=== PATIENT | female | born 1980 | race African-American/Black ===

== ENCOUNTER 2022-10-04 13:18 | Inpatient (IN) | payer MEDICARE, MEDICAID ==
[~2022-10-04] VITALS: Ht 167.6 cm; Wt 93.4 kg
--- NOTE | 2022-10-04 13:25 | NUR ---
kelsey, from snf, sob, 88% on 5lpm via NC, NRB 15L 92%
[2022-10-04] MEDS ORDERED: methylPREDNISolone SOD SUCC 125 MG/2ML VIAL IV ONE (13:30)
[2022-10-04] MEDS ORDERED: Magnesium 1GM/D5W 100ML PREMIX 200 ML IV ONE (13:30)
[2022-10-04] MEDS ORDERED: IPRATROPIUM NEB FS 0.5 MG/2.5 ML AMPUL.NEB NEB ONE (13:30)
[2022-10-04] MEDS ORDERED: ALBUTEROL FS 2.5 MG/3 ML VIAL.NEB CONTNEB ONE (13:30)
[2022-10-04] MEDS ORDERED: ALBUTEROL FS 2.5 MG/3 ML VIAL.NEB ONE (13:33)
[2022-10-04] MEDS ORDERED: IPRATROPIUM NEB FS 0.5 MG/2.5 ML AMPUL.NEB ONE (13:33)
--- NOTE | 2022-10-04 13:54 | NUR ---
COVID SWAB TAKEN
--- NOTE | 2022-10-04 13:58 | NUR ---
MOVE SHEET SUBMITTED.
--- NOTE | 2022-10-04 14:00 | NUR ---
RT AT BEDSIDE FOR TX
[2022-10-04] MEDS ORDERED: HYDR-4303 PO (14:11)
[2022-10-04] MEDS ORDERED: PANT20TA2 PO (14:11)
[2022-10-04] MEDS ORDERED: ALBU0.633 IH (14:11)
[2022-10-04] MEDS ORDERED: ACET-868 PO (14:11)
[2022-10-04] MEDS ORDERED: TYL2T PO (14:11)
[2022-10-04] MEDS ORDERED: FLUT1DIS3 IH (14:11)
--- NOTE | 2022-10-04 14:30 | NUR ---
midline placed at right upper arm,
--- NOTE | 2022-10-04 15:26 | NUR ---
blood sample obtained
[2022-10-04 15:43] LABS: BASOPHILS % (AUTO) 0.3 % (0.0-2.0); EOSINOPHILS % (AUTO) 6.9 % (0.0-6.0); HEMATOCRIT 40 % (33-45); HEMOGLOBIN 12.8 g/dL (11.5-14.8); LYMPHOCYTES # (AUTO) 2.6 K/uL (0.8-4.8); LYMPHOCYTES % (AUTO) 29.5 % (20.0-44.0); MEAN CORPUSCULAR HGB CONC 32 g/dl (31.0-36.0); MEAN CORPUSCULAR VOLUME 89 fL (82-100); MONOCYTES # (AUTO) 0.7 K/uL (0.1-1.30); MONOCYTES % (AUTO) 7.9 % (2.0-12.0); NEUTROPHILS % (AUTO) 55.4 % (43.0-81.0); PLATELET COUNT (AUTO) 290 K/uL (150-450); RED BLOOD CELL COUNT(AUTO) 4.45 MIL/uL (4.0-5.2); WHITE BLOOD COUNT (AUTO) 8.9 K/uL (4.3-11.0)
[2022-10-04] MEDS ORDERED: methylPREDNISolone SOD SUCC 125 MG/2ML VIAL ONE (15:45)
[2022-10-04] MEDS ORDERED: Magnesium 1GM/D5W 100ML PREMIX 100 ML IV ONE ×2 (15:45→16:30)
[2022-10-04 15:57] LABS: CALCIUM, SERUM 8.4 mg/dL (8.5-10.1); CARBON DIOXIDE 26 mmol/L (21-32); CHLORIDE 107 mmol/L (98-107); GLUCOSE 102 mg/dL (74-106); POTASSIUM 3.6 mmol/L (3.5-5.1); SODIUM SERUM 139 mmol/L (136-145); UREA NITROGEN, BLOOD 20 mg/dL (7-18)
[2022-10-04] MEDS ORDERED: ACETAMINOPHEN 325 MG TABLET PO PRN ×3 (16:00)
[2022-10-04] MEDS ORDERED: Z GUARD REMEDY 4 OZ OINT TP PRN (16:00)
[2022-10-04] MEDS ORDERED: MAGNESIUM HYDROXIDE 30 ML UDC PO PRN (16:00)
[2022-10-04] MEDS ORDERED: ZOLPIDEM TARTRATE 5 MG TABLET PO PRN (16:00)
[2022-10-04] MEDS ORDERED: ONDANSETRON HCL/PF 4 MG/2 ML VIAL IVP PRN (16:00)
[2022-10-04] MEDS ORDERED: MAG HYDROX/AL HYDROX/SIMETH 30 ML UDC PO PRN (16:00)
[2022-10-04 16:19] LABS: ALANINE AMINOTRANSFERASE 24 U/L (12-78); ALBUMIN 3.1 g/dL (3.4-5.0); ALKALINE PHOSPHATASE 69 U/L (46-116); ASPARTATE AMINOTRANSFERASE 18 U/L (15-37); BILIRUBIN,DIRECT 0.2 mg/dL (0.0-0.2); BILIRUBIN,TOTAL 0.3 mg/dL (0.2-1.0)
[2022-10-04 16:37] LABS: ABG BASE EXCESS -2.9 mmol/L; ABG PCO2 34.8 mmHg (35.0-45.0); ABG PH 7.402 (7.350-7.450); ABG PO2 151.4 mmHg (75.0-100.0); COHb 1.4 % (0.5-1.5); MetHb 0.3 % (0.0-1.5); O2Hb 97.6 % (94.0-97.0); SITE, ABG Left Brachial; VENT MODE, BG 8LPM SIMPLE MASK
--- NOTE | 2022-10-04 19:58 | NUR ---
report given to alonso on 3rd floor
[2022-10-04 20:15] VITALS: BP 94/50
--- NOTE | 2022-10-04 20:15 | NUR ---
REGIONAL CRAREMOTE SENSING SPECIALIST NOTE PT BROUGHT UP VIA [facility] TO UNIT AT THIS TIME. PT ADMITTED TO TELE FROM ER UNDER DR SIMMONS FOR ADMITTING DX ACUTE ASTHMA EXACERBATION. A/O X3 AND ABLE TO MAKE NEEDS KNOWN. ON O2 @ 4 LPM VIA NC, SATURATING 97%. NO SOB OR S/S OF RESPIRATORY DISTRESS. BREATHING EVEN AND UNLABORED. ON EXTERNAL GENERAL MAINTENANCE MECHANIC READING SR 84 BPM. IV ACCESS CURTIS MIDLINE, INTACT AND PATENT. PT STATED SHE IS BEDBOUND, NOTED WITH MILD WEAKNESS IN BILATERAL LOWER EXTREMITIES. PT STATED SHE WANTED A PURWICK, PLACED ONE, NOTED THAT PT IS MENSTRUATING. PT NOTED WITH MULTIPLE SCRATCHES AND OLD LFA SKIN GRAFT, WOUND CONSULT ORDERED. ORIENTED TO UNIT, STAFF, AND ROOM. PT BELONGINGS ACCOUNTED FOR AND BELONGINGS LIST SIGNED. SAFETY PRECAUTIONS IN PLACE. BED IN LOWEST LOCKED POSITION, HOB ELEVATED, SIDE RAILS UP X3, AND CALL LIGHT AND TABLE WITHIN REACH. SNACKS AND WARM BLANKET PROVIDED. ALL NEEDS MET AT THIS TIME.
[2022-10-04] MEDS: LEVOFLOXACIN 500 MG /D5W 100ML 500 MG in PREMIX 1 EA IV SCH (21:06)
[2022-10-04] MEDS: methylPREDNISolone SOD SUCC 40 MG/ML VIAL IV SCH (21:06)
[2022-10-04] MEDS: ENOXAPARIN SODIUM 40 MG/0.4 ML DISP.SYRIN SQ SCH (21:06)
[2022-10-04 21:12] VITALS: BP 96/56
[2022-10-04] MEDS: BUDESONIDE RESPULE INH 0.5 MG/2 ML AMPUL.NEB IH SCH (23:30)
[2022-10-04] MEDS: ALBUTEROL FS 2.5 MG/3 ML VIAL.NEB CONTNEB SCH (23:30)
[2022-10-04] MEDS: IPRATROPIUM NEB FS 0.5 MG/2.5 ML AMPUL.NEB NEB SCH (23:30)
--- NOTE | 2022-10-04 23:37 | NUR ---
RT NOTE TX NOT GIVEN @ 1930, WAS NOT AWARE OF PATIENT IN UNIT. WILL GIVE NEXT SCHEDULED TX.
[2022-10-05] VITALS: BP 94/50
--- NOTE | 2022-10-05 01:10 | NUR ---
RN NOTE PT ARRIVED WITH POLST STATING DNR/DNI. CONFIRMED WITH PT. TROY MAK INFORMED WITH NEW ORDER FOR CODE STATUS DNR/DNI. NEW ORDER NOTED AND CARRIED OUT.
[2022-10-05] MEDS: IPRATROPIUM NEB FS 0.5 MG/2.5 ML AMPUL.NEB NEB SCH ×4 (01:57→19:30)
[2022-10-05] MEDS: ALBUTEROL FS 2.5 MG/3 ML VIAL.NEB CONTNEB SCH ×4 (01:57→19:30)
[2022-10-05] MEDS: ALBUTEROL FS 2.5 MG/3 ML VIAL.NEB NEB SCH ×4 (02:09→19:30)
[2022-10-05] MEDS: methylPREDNISolone SOD SUCC 40 MG/ML VIAL IV SCH ×3 (04:29→21:18)
[2022-10-05 06:05] LABS: CALCIUM, SERUM 8.5 mg/dL (8.5-10.1); PHOSPHORUS 3.1 mg/dL (2.5-4.9); POTASSIUM 4.1 mmol/L (3.5-5.1)
[2022-10-05 06:08] LABS: HEMATOCRIT 38 % (33-45); HEMOGLOBIN 12.5 g/dL (11.5-14.8); LYMPHOCYTES # (AUTO) 0.6 K/uL (0.8-4.8); LYMPHOCYTES % (AUTO) 6.2 % (20.0-44.0); MEAN CORPUSCULAR HGB CONC 33 g/dl (31.0-36.0); MEAN CORPUSCULAR VOLUME 88 fL (82-100); MONOCYTES # (AUTO) 0.1 K/uL (0.1-1.30); MONOCYTES % (AUTO) 0.7 % (2.0-12.0); NEUTROPHILS # (AUTO) 9.3 K/uL (1.8-8.9); NEUTROPHILS % (AUTO) 93.1 % (43.0-81.0); PLATELET COUNT (AUTO) 303 K/uL (150-450); RED BLOOD CELL COUNT(AUTO) 4.35 MIL/uL (4.0-5.2)
--- NOTE | 2022-10-05 06:33 | NUR ---
PULMONARY FUNCTION TECHNOLOGIST CLOSING NOTE PT AWAKE IN BED. A/O X3 AND ABLE TO MAKE NEEDS KNOWN. ON O2 @ 4 LPM VIA NC, SATURATING 97%. NO SOB OR S/S OF RESPIRATORY DISTRESS. BREATHING EVEN AND UNLABORED. ON EXTERNAL JUKEBOX ROUTEMAN READING SR 82 BPM. IV ACCESS CURTIS MIDLINE, INTACT AND PATENT. ALL DUE MEDS GIVEN ORDERED. KEPT CLEAN AND DRY. SAFETY PRECAUTIONS IN PLACE AT ALL TIMES. BED IN LOWEST LOCKED POSITION, HOB ELEVATED, SIDE RAILS UP X3, AND CALL LIGHT AND TABLE WITHIN REACH. ALL NEEDS MET AT THIS TIME AND WILL ENDORSE TO ONCOMING NURSE FOR PAT.
[2022-10-05] MEDS: PANTOPRAZOLE 40 MG TABLET.DR PO SCH (07:48)
--- NOTE | 2022-10-05 07:59 | NUR ---
RN OPENING NOTE- PT AWAKE IN BED. INTERACTIVE, A/O X3 AND ABLE TO MAKE NEEDS KNOWN. REQUESTING FOOD,ON O2 @ 4 LPM VIA NC, SATURATING 97%. NO SOB OR S/S OF RESPIRATORY DISTRESS. ON EXTERNAL EXPERIMENTAL DISPLAY BUILDER READING SR 79 BPM. IV ACCESS CURTIS MIDLINE. SAFETY PRECAUTIONS IN PLACE AT ALL TIMES. BED IN LOWEST LOCKED POSITION, HOB ELEVATED, SIDE RAILS UP X3, AND CALL LIGHT AND TABLE WITHIN REACH. MONITOR / ASSIST
[2022-10-05] MEDS: BUDESONIDE RESPULE INH 0.5 MG/2 ML AMPUL.NEB IH SCH ×2 (08:04→19:30)
[2022-10-05 08:11] VITALS: BP 100/61
--- NOTE | 2022-10-05 10:14 | NUR ---
WOUND CARE CONSULT: PT SLEEPING SOUNDLY AT THIS TIME. ADMISSION PHOTOS INDICATE SOME SCARRING AND AREAS OF SKIN DISCOLORATION. PER RN, NO WOUND CONSULT NEEDED AT THIS TIME. WILL SEE PRN.
[2022-10-05 11:55] VITALS: BP 80/50
[2022-10-05] MEDS: LEVOFLOXACIN 500 MG /D5W 100ML 500 MG in PREMIX 1 EA IV SCH (16:12)
[2022-10-05 16:20] VITALS: BP 91/54
[2022-10-05] MEDS: ENOXAPARIN SODIUM 40 MG/0.4 ML DISP.SYRIN SQ SCH (16:24)
--- NOTE | 2022-10-05 18:38 | NUR ---
RN CLOSING NOTE- UNCHANGED, PT AWAKE IN BED. INTERACTIVE, A/O X3 AND ABLE TO MAKE NEEDS KNOWN. REQUESTING FOOD, ON O2 @ 4 LPM VIA NC, SATURATING 97%. NO SOB OR S/S OF RESPIRATORY DISTRESS. ON EXTERNAL CHIEF LIBRARIAN WORK WITH BLIND READING SR 79 BPM. IV ACCESS CURTIS MIDLINE. SAFETY PRECAUTIONS IN PLACE AT ALL TIMES. BED IN LOWEST LOCKED POSITION, HOB ELEVATED, SIDE RAILS UP X3, AND CALL LIGHT AND TABLE WITHIN REACH. MONITOR / ASSIST
--- NOTE | 2022-10-05 19:40 | NUR ---
CASE FINISHING MACHINE ADJUSTER OPENING NOTES RECEIVED PATIENT IN BED AWAKE, ALERT AND ORIENTED. A/O X 3-4. NO S/S OF PAIN NOTED AT THIS TIME. ON 4L OXYGEN VIA NC, BREATHING EVEN AND UNLABORED, NO DISTRESS OR SOB NOTED. PT W/ EXTERNAL DIGITAL ENGINEER W/ CURRENT READING OF SR @ 88, NO CARDIAC DISTRESS NOTED. IV ACCESS CURTIS MIDLINE, SL. SAFETY MEASURES IN PLACE WITH BED ON LOWEST AND LOCK POSITION. BED ALARM ON. SIDE RAILS UP X 2. TRAY AND CALL LGIHT WITHIN EASY REACH. WILL CONTINUE WITH THE PLAN OF CARE.
[2022-10-05 20:00] VITALS: BP 80/60
[2022-10-05] MEDS: HYDROCODONE/APAP 5/325MG TABLET PO PRN (20:44)
--- NOTE | 2022-10-05 20:45 | NUR ---
RN NOTES- MARYCO PATIENT C/O OF RIGHT HAND PAIN WITH THE SCALE OF 8/10. NORCO 325MG TAB GIVEN PRN. WILL ASSESS THE PAIN AFTER AN HOUR AND MONITOR PATIENT.
--- NOTE | 2022-10-05 22:41 | NUR ---
RN NOTES- ATIVAN GIVEN PATIENT IS HAVING SEIZURE-LIKE SYMPTOMS LIKKE SHAKING HANDS. ATIVAN 1MG/0.5ML IV GIVEN PRN. ASPIRATION PRECAUTION DONE. WILL CONTINUE TO MONITOR PATIENT. Addendum: 10/06/22 at 0646 by JENNIE NAVARRO RN WRONG PATIENT NAME
[2022-10-06] MEDS: IPRATROPIUM NEB FS 0.5 MG/2.5 ML AMPUL.NEB NEB SCH ×4 (01:30→19:58)
[2022-10-06] MEDS: ALBUTEROL FS 2.5 MG/3 ML VIAL.NEB NEB SCH ×2 (01:30→07:35)
[2022-10-06] MEDS: ALBUTEROL FS 2.5 MG/3 ML VIAL.NEB CONTNEB SCH ×4 (01:30→19:58)
--- NOTE | 2022-10-06 03:44 | NUR ---
JOANA NOTES- ATIVAN GIVEN PATIENT IS HAVING SEIZURE-LIKE SYMPTOMS WHICH IS SHAKING HANDS. ATIVAN 1MG/0.5ML IV GIVEN PRN. ASPIRATION PRECAUTION DONE. WILL CONTINUE TO MONITOR PATIENT. Addendum: 10/06/22 at 0646 by JENNIE NAVARRO RN WRONG PATIENT Addendum: 10/06/22 at 0646 by JENNIE NAVARRO RN WRONG PATIENT NAME
[2022-10-06] MEDS: methylPREDNISolone SOD SUCC 40 MG/ML VIAL IV SCH ×3 (04:57→20:54)
[2022-10-06 07:00] VITALS: BP 93/60
--- NOTE | 2022-10-06 07:20 | NUR ---
DEPUTY SHERIFF BUILDING GUARD NOTES PATIENT IN BED ALERT ORIENTED X 4, NO ACUTE DISTRESS NOTED, BREATHING UNLABORED. NO SOB NOTED. IV ACCESS PATENT AND INTACT. SAFETY MEASURES IN PLACE, CALL LIGHT WITHIN REACH. WILL CONTINUE TO MONITOR ACCORDINGLY
--- NOTE | 2022-10-06 07:38 | NUR ---
MS RN CLOSING NOTES PATIENT IN BED AWAKE, ALERT AND ORIENTED. A/O X 3-4. NO S/S OF PAIN NOTED AT THIS TIME. ON 4L OXYGEN VIA NC, BREATHING EVEN AND UNLABORED, NO DISTRESS OR SOB NOTED. ON PUREWICK, DRAINED 400 CC JONELLE COLORED URINE. IV ACCESS CURTIS MIDLINE, SL. SAFETY MEASURES IN PLACE WITH BED ON LOWEST AND LOCK POSITION. BED ALARM ON. SIDE RAILS UP X 2. TRAY AND CALL LIGHT WITHIN EASY REACH. WILL ENDORSE TO THE NEXT SHIFT..
[2022-10-06] MEDS: PANTOPRAZOLE 40 MG TABLET.DR PO SCH (07:50)
[2022-10-06] MEDS: BUDESONIDE RESPULE INH 0.5 MG/2 ML AMPUL.NEB IH SCH (07:58)
[2022-10-06] MEDS ORDERED: IPRATROPIUM NEB FS 0.5 MG/2.5 ML AMPUL.NEB NEB SCH (09:00)
[2022-10-06] MEDS: ENOXAPARIN SODIUM 40 MG/0.4 ML DISP.SYRIN SQ SCH (16:00)
[2022-10-06] MEDS: LEVOFLOXACIN 500 MG /D5W 100ML 500 MG in PREMIX 1 EA IV SCH (16:22)
[2022-10-06 16:27] VITALS: BP 82/50
--- NOTE | 2022-10-06 16:29 | NUR ---
MS RN- Patient refused Lovenox. Patient aware of the risks and benefits of not taking medication. Janell Haynes made aware.
--- NOTE | 2022-10-06 18:51 | NUR ---
WIRE TECHNICIAN CLOSING NOTES PATIENT IN BED ALERT ORIENTED X 4, NO ACUTE DISTRESS NOTED, BREATHING UNLABORED. NO SOB NOTED. IV ACCESS PATENT AND INTACT. NEEDS ATTENDED AND ANTICIPATED. SAFETY MEASURES IN PLACE, CALL LIGHT WITHIN REACH. WILL ENDORSE TO NIGHT NURSE FOR CONTINUITY OF CARE
--- NOTE | 2022-10-06 19:45 | NUR ---
MS RN NOTES RECEIVED ON BED, ON HIGH FOWLERS POSITION,BREATHING EASY NO SOB.O2 USE ON AND OFF,PUREWICK NOT IN PLACE,COMMENTED SHE HAD PERIOD.VERY NEEDY,HOMELESS.WILL CONTINUE TO MONITOR.
[2022-10-06 20:00] VITALS: BP 99/59
[2022-10-06] MEDS: HYDROCODONE/APAP 5/325MG TABLET PO PRN (21:08)
--- NOTE | 2022-10-06 21:08 | NUR ---
MS RN NOTES HAVING ON RIGHT HAND 5/10 ON PAIN SCALE,NORCO 5/325MG,1TAB PO GIVEN ORDERED AND PER PATIENT REQUEST.
[2022-10-07] MEDS: IPRATROPIUM NEB FS 0.5 MG/2.5 ML AMPUL.NEB NEB SCH ×4 (00:32→20:11)
[2022-10-07] MEDS: ALBUTEROL FS 2.5 MG/3 ML VIAL.NEB CONTNEB SCH ×4 (00:32→20:11)
[2022-10-07] MEDS ORDERED: VANCOMYCIN 1.25 GM in IV D5W 250 ML IV SCH (02:00)
[2022-10-07] MEDS: methylPREDNISolone SOD SUCC 40 MG/ML VIAL IV SCH ×3 (04:55→20:24)
--- NOTE | 2022-10-07 05:30 | NUR ---
MS RN NOTES OFFERED MORNING CARE BUT REFUSED.
--- NOTE | 2022-10-07 06:57 | NUR ---
MS RN NOTES FAIRLY RESTED AT NIGHT,PAIN IMPROVED WITH NORCO.POSSIBLE DISCHARGE,AWAITING PLACEMENT.IN NO ACUTE DISTRESS
[2022-10-07 08:00] VITALS: BP 96/69
--- NOTE | 2022-10-07 08:16 | NUR ---
RN OPENING NOTE RECEIVED PATIENT IN BED AO x 4, ABLE TO RESPONDS PHYSICAL STIMULI. RESPIRATORY EVEN AND UNLABORED IN OXYGEN AT 4 Ls VIA NC. IN NO ACUTE RESPIRATORY DISTRESS OBSERVED. SKIN IS WARM TO TOUCH, KEEP CLEAN/DRY. KEPT ELEVATED HOB FOR ASPIRATION PRECAUTION/ENSURE AIRWAY, ALSO LOWEST BED POSITIONED. BED ALARM IS ON AT ALL THE TIME FOR SAFETY. CALL LIGHT WITHIN REACH, WILL CONTINUE TO MONITOR.
[2022-10-07] MEDS: PANTOPRAZOLE 40 MG TABLET.DR PO SCH (08:29)
--- NOTE | 2022-10-07 13:30 | NUR ---
PATIENT NOTICED GRAM POSITIVE FROM BLOOD CX, MADE AWARE.
[2022-10-07] MEDS ORDERED: VANCOMYCIN 1.25 GM in IV D5W 250 ML IV ONE (15:00)
[2022-10-07 15:54] LABS: BILIRUBIN,URINE NEGATIVE (NEGATIVE); COLOR,URINE DARK YELLOW (YELLOW); LEUKOCYTE ESTERASE ,URINE NEGATIVE (NEGATIVE); NITRITE, URINE POSITIVE (NEGATIVE); PROTEIN,URINE 2+ mg/dl (NEGATIVE); UGLUCOSE NEGATIVE (NEGATIVE)
[2022-10-07 16:00] VITALS: BP 89/52
[2022-10-07] MEDS: ENOXAPARIN SODIUM 40 MG/0.4 ML DISP.SYRIN SQ SCH (16:12)
[2022-10-07] MEDS: LEVOFLOXACIN (250MG) 250 MG TABLET PO SCH (16:24)
[2022-10-07] MEDS ORDERED: HYDROCODONE/APAP 10/325MG TABLET PO PRN (17:00)
[2022-10-07] MEDS: HYDROCODONE/APAP 5/325MG TABLET PO PRN (17:05)
[2022-10-07 17:10] LABS: BACTERIA,URINE 1+ /HPF (None Seen); SQUAMOUS EPITHELIAL CELL,UR Few /HPF (None Seen); URINE AMORPHOUS URATE Moderate /HPF (None Seen); WBC,URINE 0-2 /HPF (0-3)
--- NOTE | 2022-10-07 18:00 | NUR ---
RN CLOSING NOTE PATIENT RESTING IN BED. IN NO ACUTE DISTRESS OBSERVED. RESPIRATORY EVEN AND UNLABORED ON OXYGEN AT 4Ls VIA NC, NO SOB OR DESATURATION NOTED. SKIN IS WARM TO TOUCH KEEP CLEAN/DRY. KEPT ELEVATED HOB FOR ENSURE AIRWAY/ASPIRATION PRECAUTION, AND LOWEST BED POSITION. BED ALARM IS ON AT ALL THE TIME FOR SAFETY. CALL LIGHT WITHIN REACH, WILL ENDORSE OAKES MACHINE OPERATOR.
--- NOTE | 2022-10-07 18:35 | NUR ---
PATIENT NOTED POSITIVE BACTERIA FROM UA RESULT, AND INFORMED MD.
[2022-10-07 20:30] VITALS: BP 93/55
[2022-10-07 20:32] VITALS: BP 93/93
[2022-10-08] MEDS: IPRATROPIUM NEB FS 0.5 MG/2.5 ML AMPUL.NEB NEB SCH ×4 (01:30→20:25)
[2022-10-08] MEDS: ALBUTEROL FS 2.5 MG/3 ML VIAL.NEB CONTNEB SCH ×4 (01:30→20:25)
[2022-10-08] MEDS: VANCOMYCIN 1.25 GM in IV D5W 250 ML IV SCH ×2 (02:36→15:58)
[2022-10-08] MEDS: methylPREDNISolone SOD SUCC 40 MG/ML VIAL IV SCH (05:23)
[2022-10-08 05:41] LABS: HEMATOCRIT 38 % (33-45); HEMOGLOBIN 12.2 g/dL (11.5-14.8); LYMPHOCYTES # (AUTO) 0.4 K/uL (0.8-4.8); LYMPHOCYTES % (AUTO) 6.1 % (20.0-44.0); MEAN CORPUSCULAR HGB CONC 32 g/dl (31.0-36.0); MEAN CORPUSCULAR VOLUME 90 fL (82-100); MONOCYTES # (AUTO) 0.2 K/uL (0.1-1.30); MONOCYTES % (AUTO) 3.3 % (2.0-12.0); NEUTROPHILS # (AUTO) 6.4 K/uL (1.8-8.9); NEUTROPHILS % (AUTO) 90.6 % (43.0-81.0); PLATELET COUNT (AUTO) 227 K/uL (150-450); RED BLOOD CELL COUNT(AUTO) 4.21 MIL/uL (4.0-5.2); WHITE BLOOD COUNT (AUTO) 7.1 K/uL (4.3-11.0)
[2022-10-08 05:51] LABS: CALCIUM, SERUM 7.4 mg/dL (8.5-10.1); POTASSIUM 3.8 mmol/L (3.5-5.1)
--- NOTE | 2022-10-08 07:20 | NUR ---
END OF SHIFT REPORT Patient in bed, Alert Oriented x4. Oxygen sat high 90's in 3L NC. CURTIS Midline intact, on IV Abx. Afebrile. Up to BSC, had large BM. Observed no SOB with exertion. Urine collected send to lab for urine cx test. Urine color red mixed with blood as patient on her menstrual cycle period. Patient reports her bed is wet and dirty with urine, IT INTERN and RN removed and changed linens, provided patient with clean blankets. Patient yelled out to nurse on why all 4 blankets were taken away from her. Educated on good hygiene, preventing infection as all blankets needs to be changed d/t soiling, provided more blankets to patient. Patient continuous with outburst calling names and profanity. Declined education. Good appetite, request more food. Fall precaution maintained. Endorsed to am Nurse.
--- NOTE | 2022-10-08 07:27 | NUR ---
MS RN OPENING NOTES RECEIVED PATIENT AWAKE IN BED IN NO ACUTE SIGNS OF DISTRESS. A/O X4. ABLE TO MAKE NEEDS KNOWN, NO C/O PAIN OR DISCOMFORTS AT THIS TIME. ON 02 VIA N/C @ 3LPM, TOLERATING WELL, BREATHING EVEN AND UNLABORED. PT WITH CURTIS MIDLINE G#18 SALINE LOCKED, PATENT AND INTACT. SAFETY MEASURES IN PLACE: BED IN LOWEST LOCKED POSITION, BED ALARM ON, SIDE-RAILS UP X2 AND CALL LIGHT WITHIN REACH. WILL CONTINUE TO MONITOR PT ACCORDINGLY.
[2022-10-08] MEDS: PANTOPRAZOLE 40 MG TABLET.DR PO SCH (07:32)
--- NOTE | 2022-10-08 08:30 | NUR ---
PT RECEIVED RESTING COMFORTABLY IN BED. NO S/S OR C/O PAIN OR DISTRESS NOTED. SIDE RAILS UP X2, CALL LIGHT LEFT WITHIN REACH. WILL CONTINUE PLAN OF CARE.
[2022-10-08 09:00] VITALS: BP 88/51
[2022-10-08] MEDS: LEVOFLOXACIN (250MG) 250 MG TABLET PO SCH (15:59)
[2022-10-08] MEDS: ENOXAPARIN SODIUM 40 MG/0.4 ML DISP.SYRIN SQ SCH (16:00)
[2022-10-08] MEDS: HYDROCODONE/APAP 5/325MG TABLET PO PRN (16:04)
--- NOTE | 2022-10-08 18:05 | NUR ---
CHANGE OF SHIFT REPORT PT RESTING COMFORTABLY IN BED. NO S/S OR C/O PAIN OR DISTRESS NOTED. SIDE RAILS UP X2, CALL LIGHT LEFT WITHIN REACH. PT KEPT CLEAN, DRY, AND COMFORTABLE. NO SIGNIFICANT CHANGES FROM PREVIOUS SHIFT. WILL GIVE REPORT TO TRAVIS BERNARD.
--- NOTE | 2022-10-08 19:35 | NUR ---
ms adalgisa initial notes received report from am nurse and seen pt in bed on sitting position with side rails x2 up, awake and alert watching TV. No signs of any distress noted. She's on O2 at 2 liters via nasal canula. Skin warm and dry to touch. Pt states she still having menstrual period but denies any pain. She request to have a sandwich , crackers, pudding and juice later. Kept her warm and comfortable at all times. will continue monitoring. call light at reach.
--- NOTE | 2022-10-08 20:00 | NUR ---
MS FOOD AIDE NOTES PT CALLED AND COMPLAINING OF PAIN ON HER RIGHT HAND. I SPOKE TO THE PATIENT THAT I NEED TO RE-CHECK HER BLOOD PRESSURE BEFORE I WILL GIVE HER PAIN MEDS. SHE TOLD ME AND ASK ME WHY. I EXPLAIN TO HER THAT HER BLOOD PRESSURE THAT HAS TAKEN BY FABRIC PATTERN GRADER IS LOW 77/34. THEN PATIENT STATES THAT SHE'S ALWAYS HAVE LOW BP AND SHE INSIST THAT I CAN'T USE HER RIGHT ARM. I STILL EXPLAINED TO HER THAT I STILL NEEDS TO RE- CHECK EVEN USING HER LOWER LEGS. PT AGREED AND LOOKING AT ME. BLOOD PRESSURE CAME UP 105/76 AND HEART RATE 77.
[2022-10-08 20:19] VITALS: BP 105/58
--- NOTE | 2022-10-08 20:29 | NUR ---
MS ROASTMASTER NOTES NORCO TABLET GIVEN FOR HER RIGHT HAND PAIN 02/12 . SNACKS ALSO SERVED. WILL CONTINUE MONITORING.
[2022-10-09] MEDS: IPRATROPIUM NEB FS 0.5 MG/2.5 ML AMPUL.NEB NEB SCH ×4 (01:18→19:30)
[2022-10-09] MEDS: ALBUTEROL FS 2.5 MG/3 ML VIAL.NEB CONTNEB SCH ×4 (01:18→19:30)
--- NOTE | 2022-10-09 02:53 | NUR ---
MS MEL NOTES NOTIFY [facility] AND SPOKE TO [facility] REGARDING VANCO TROUGH LEVEL 23H, HOLD VANCO FOR NOW.
[2022-10-09] MEDS: VANCOMYCIN 1.25 GM in IV D5W 250 ML IV SCH (02:56)
[2022-10-09 06:20] LABS: CALCIUM, SERUM 6.9 mg/dL (8.5-10.1); CREATININE 1.1 mg/dL (0.6-1.3); POTASSIUM 3.6 mmol/L (3.5-5.1)
--- NOTE | 2022-10-09 06:49 | NUR ---
MS SERVICE DELIVERY MANAGER CLOSING NOTES PT SEEN IN BED WATCHING TV AT THIS TIME. STABLE THROUGHOUT THE NIGHT AFTER PAIN MEDICATION GIVEN LAST NIGHT. KEPT HER WARM AND COMFORTABLE AT ALL TIMES. BED IN LOW AND LOCK IN POSITION WITH SIDE RAILS X2 UP ,PLACE CALL LIGHT AT REACH. WILL ENDORSE TO AM NURSE FOR CONTINUITY OF CARE.
[2022-10-09] MEDS: PANTOPRAZOLE 40 MG TABLET.DR PO SCH (07:31)
--- NOTE | 2022-10-09 07:32 | NUR ---
MS RN OPENING NOTES: RECEIVED PATIENT IN BED, ASLEEP EASILY AWAKEN WITH STIMULI. PT ALERT AND ORIENTED X 3 AND ABLE TO MAKE NEEDS KNOWN. NO SOB OR CARDIAC DISTRESS NOTED. IV ACCESS ON CURTIS MIDLINE PATENT,INTACT AND FLUSHING WELL, SL. SAFETY MEASURES MAINTAINED: BED LOCKED AND IN LOWEST POSITION, SIDE RAILS UP X 2, CALL LIGHT IN EASY REACH AND WILL MONITOR PT ACCORDINGLY.
[2022-10-09 08:00] VITALS: BP 94/46
[2022-10-09] MEDS: predniSONE 20 MG TABLET PO SCH (08:30)
--- NOTE | 2022-10-09 13:39 | NUR ---
RN NOTES: RECEIVED A CALL FROM JAYY (LAB) BLOOD CULTURE RESULT IS AEROBIC GRAM POSITIVE COCCI. RELAYED TO DR NICHOLE PAULA, PT ON VANCO IC- DR PAULA STATED "NO NEW ORTHER". ORDERS NOTED AND CARRIED OUT.
[2022-10-09] MEDS: VANCOMYCIN 1 GM in IV D5W 250ml IV SCH (14:09)
[2022-10-09] MEDS: ENOXAPARIN SODIUM 40 MG/0.4 ML DISP.SYRIN SQ SCH (15:16)
[2022-10-09] MEDS: LEVOFLOXACIN (250MG) 250 MG TABLET PO SCH (15:16)
[2022-10-09 16:00] VITALS: BP 90/44
--- NOTE | 2022-10-09 18:53 | NUR ---
MS RN CLOSING NOTES: PT IN BED, AWAKE. ALERT AND ORIENTED X 3 AND ABLE TO MAKE NEEDS KNOWN. NO SOB OR CARDIAC DISTRESS NOTED. NO COMPLAIN OF ANY PAIN IN AM SHIFT. ABLE TO AMBULATE WITH ASSISTANCE. ON ROOM AIR AND TOLERATING WELL. IV ACCES ON CURTIS MIDLINE,PATENT,INTACT AND SALINE LOCKED. SAFETY MEASURES MAINTAINED:BED LOCKED AN IN LOWEST POSITION, SIDE RAILS UP X 2 CALL LIGHT IN EASY REACH FOR HELP. ENDORSED TO NUT SORTER OPERATOR RN FOR CONTINUITY OF CARE.
[2022-10-09 20:00] VITALS: BP 114/66
--- NOTE | 2022-10-09 20:00 | NUR ---
MS MEL INITIAL NOTES RECEIVED REPORT FROM AM NURSE AND SEEN PT IN BED SITTING WATCHING TV AT THIS TIME, NOT IN ANY ACUTE DISTRESS NOTED. SHE'S COMPLAINING OF PAIN ON HER RIGHT HAND 6/10 , SHE ALSO REQUEST FOR SNACKS WELL . KEPT HER WARM AND COMFORTABLE AT ALL TIMES. PLACE CALL LIGHT AT REACH. WILL CONTINUE MONITORING.
[2022-10-09] MEDS: HYDROCODONE/APAP 5/325MG TABLET PO PRN (20:34)
--- NOTE | 2022-10-09 20:35 | NUR ---
MS LABEL SEWER NOTES NORCO TABLET 5 MG PO GIVEN FOR PAIN PT REQUESTED. SNACKS ALSO SERVED.
--- NOTE | 2022-10-09 21:45 | NUR ---
MS JOB TRAINING SPECIALIST NOTES' RE-ASSESS PT FOR HER PAIN AND SHE STATES FEEL BETTER. KEPT HER WARM AND COMFORTABLE AT ALL TIMES. PLACE CALL LIGHT AT REACH.
[2022-10-10] MEDS: IPRATROPIUM NEB FS 0.5 MG/2.5 ML AMPUL.NEB NEB SCH ×3 (01:30→13:30)
[2022-10-10] MEDS: ALBUTEROL FS 2.5 MG/3 ML VIAL.NEB CONTNEB SCH ×3 (01:30→13:30)
[2022-10-10] MEDS: VANCOMYCIN 1 GM in IV D5W 250ml IV SCH (03:25)
[2022-10-10 06:32] LABS: BASOPHILS % (AUTO) 0.6 % (0.0-2.0); EOSINOPHILS % (AUTO) 2.1 % (0.0-6.0); HEMATOCRIT 35 % (33-45); HEMOGLOBIN 11.3 g/dL (11.5-14.8); LYMPHOCYTES # (AUTO) 2.6 K/uL (0.8-4.8); MEAN CORPUSCULAR HGB CONC 32 g/dl (31.0-36.0); MEAN CORPUSCULAR VOLUME 89 fL (82-100); MONOCYTES # (AUTO) 0.7 K/uL (0.1-1.30); MONOCYTES % (AUTO) 10.8 % (2.0-12.0); NEUTROPHILS # (AUTO) 3.3 K/uL (1.8-8.9); NEUTROPHILS % (AUTO) 48.5 % (43.0-81.0); PLATELET COUNT (AUTO) 215 K/uL (150-450); RED BLOOD CELL COUNT(AUTO) 3.95 MIL/uL (4.0-5.2); WHITE BLOOD COUNT (AUTO) 6.8 K/uL (4.3-11.0)
[2022-10-10 06:45] LABS: CALCIUM, SERUM 6.7 mg/dL (8.5-10.1); POTASSIUM 3.5 mmol/L (3.5-5.1)
[2022-10-10 07:00] VITALS: BP 84/57
--- NOTE | 2022-10-10 07:11 | NUR ---
MS RN OPENING NOTES RECEIVED PATIENT AWAKE IN BED, A/Ox4, ABLE TO VERBALIZED NEEDS. PATIENT ON 2L OF O2 VIA NC, NO S/S OF RESPIRATORY DISTRESS OR DISCOMFORT. IV ACCESS CURTIS MIDLINE S/L. INTACT AND PATENT. NO C/O OF PAIN OR DISCOMFORT. PATIENT INCONTINENT. ON BEDREST. SKIN INTACT. SAFETY MEASURES IN PLACE: BED LOCKED AND IN LOWEST POSITION, HOB ELEVATED, SIDE RAILS UPx2, CALL LIGHT WITHIN REACH. WILL CONTINUE TO MONITOR.
--- NOTE | 2022-10-10 07:34 | NUR ---
MS STORE STOCKER CLOSING NOTES PT AWAKE IN BED.ASSISTED HER TO WALK TO THE RESTROOM . INTERACTIVE, A/O X3 AND ABLE TO MAKE NEEDS KNOWN. REQUE NO SOB OR S/S OF RESPIRATORY DISTRESS. IV ACCESS CURTIS MIDLINE STILL PATENT AND INTACT. SAFETY PRECAUTIONS IN PLACE AT ALL TIMES. BED IN LOWEST LOCKED POSITION, HOB ELEVATED, SIDE RAILS UP X3, AND CALL LIGHT AND TABLE WITHIN REACH. WILL ENDORSE TO AM NURSE FOR CONTINUITY OF CARE.
[2022-10-10] MEDS: PANTOPRAZOLE 40 MG TABLET.DR PO SCH (08:16)
[2022-10-10] MEDS: predniSONE 20 MG TABLET PO SCH (08:16)
[2022-10-10] MEDS: LEVOFLOXACIN (250MG) 250 MG TABLET PO SCH (15:09)
[2022-10-10] MEDS: ENOXAPARIN SODIUM 40 MG/0.4 ML DISP.SYRIN SQ SCH (16:00)
--- NOTE | 2022-10-10 16:39 | NUR ---
RN NOTES PATIENT REFUSED LOVENOX, ATTEMPTED 3 TIMES, EXPLAINED ALL RISKS AND BENEFITS TO PATIENT. WILL CONTINUE TO MONITOR.
--- NOTE | 2022-10-10 18:12 | NUR ---
DENTAL TECH NOTES PATIENT D/C TO SNF. REPORT GIVEN TO JOANA MACEDO. PATIENT A/Ox4 ABLE TO MAKE NEEDS KNOWN. STABLE ON ROOM AIR. NO S/S OF RESPIRATORY DISTRESS. PATIENT IV ACCESS REMOVED AND PRESSURE DRESSING APPLIED. ID BAND REMOVED. ALL DISCHARGE AND HEALTH TEACHINGS EXPLAINED TO PATIENT. PATIENT VERBALIZED UNDERSTANDING. PATIENT REFUSED TO ALLOW PHOTOS TO BE TAKEN OF SKIN ISSUES. ALL FORMS SIGNED AND COPIED, FILED INTO CHART. PATIENT LEFT UNIT @1800, ACCOMPANIED BY TWO clinical trials manager. CHARGE NURSE AND MD AWARE OF DISCHARGE.
== END 2022-10-10 17:50 | DRG 189 ==
LOC: ER 13:20 → TELE 19:53 → MED 10-05 21:00
PROVIDERS: ADMIT Nurse Practitioner Acute Care; ATTEND Nurse Practitioner Acute Care
PROC: 05HB33Z Insertion of Infusion Device into Right Basilic Vein, Percutaneous Approach (ICD-10-PCS; principal; 2022-10-04)
DX: J96.22 Acute and chronic respiratory failure with hypercapnia (principal); J45.901 Unspecified asthma with (acute) exacerbation; E44.1 Mild protein-calorie malnutrition; Z68.41 Body mass index [BMI] 40.0-44.9, adult; M62.82 Rhabdomyolysis; N39.0 Urinary tract infection, site not specified; Z66 Do not resuscitate; Z20.822 Contact with and (suspected) exposure to COVID-19; E66.01 Morbid (severe) obesity due to excess calories; M19.90 Unspecified osteoarthritis, unspecified site; G62.9 Polyneuropathy, unspecified; F41.9 Anxiety disorder, unspecified; Z91.010 Allergy to peanuts; Z88.5 Allergy status to narcotic agent; Z91.013 Allergy to seafood; F29 Unspecified psychosis not due to a substance or known physiological condition; Z79.899 Other long term (current) drug therapy; Z79.51 Long term (current) use of inhaled steroids; Z98.890 Other specified postprocedural states; K21.9 Gastro-esophageal reflux disease without esophagitis; E87.6 Hypokalemia; E66.9 Obesity, unspecified; G47.33 Obstructive sleep apnea (adult) (pediatric); F31.9 Bipolar disorder, unspecified; B96.89 Other specified bacterial agents as the cause of diseases classified elsewhere
CPT/HCPCS: 36415; 36600; 70220-TC; 71045-TC; 80048-TC; 80076-TC; 80202-TC; 81001; 82803-TC; 83605-TC; 83735-TC; 83880; 84100-TC; 84484-TC; 84703-TC; 85025-TC; 87040-TC; 87081-TC; 87086-TC; 94799-TC; 97112-TC; 97530-TC; A4216; A4223; C9803; G0378; J1650; J1956; J2920; J2930; J3370; J3475; J7050; J7060